=== PATIENT | male | born 1950 | race Caucasian/White ===

== ENCOUNTER → 2023-01-27 | Outpatient (CLI) | payer MEDICARE, BC ==
[~2023-01-27] MED LIST: ANAS1TAB2 PO; ASPI81TA26 PO; FINA5TAB2 PO; PROHANCE 279.3MG/ML 15ML VIAL ONE; PROHANCE 279.3MG/ML 5ML VIAL ONE; TEST1INJ3 IM
== END ==
LOC: M RAD 11:37
PROVIDERS: ATTEND Urology
DX: R97.20 Elevated prostate specific antigen [PSA] (principal); M47.896 Other spondylosis, lumbar region
CPT/HCPCS: 72158; 72197; A9576

== ENCOUNTER → 2023-01-27 | Outpatient (CLI) | payer OTHER, MEDICARE, BC ==
[~2023-01-27] VITALS: Ht 182.9 cm; Wt 96.4 kg
[~2023-01-27] MED LIST changes: +PROHANCE 279.3MG/ML 15ML VIAL As Ordered ONE; -PROHANCE 279.3MG/ML 15ML VIAL ONE; +PROHANCE 279.3MG/ML 5ML VIAL As Ordered ONE; -PROHANCE 279.3MG/ML 5ML VIAL ONE
[2023-01-27 12:15] VITALS: TEMP 98
[2023-01-27 14:52] VITALS: BP 129/72; O2SAT 94
== END ==
LOC: M RAD 11:39
PROVIDERS: ATTEND Internal Medicine
DX: M54.16 Radiculopathy, lumbar region (principal)